=== PATIENT | male | born 1995 | race African-American/Black ===

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

== ENCOUNTER 2017-03-22 21:43 | Emergency (ER) | payer SELFPAY ==
[2017-03-22 21:45] VITALS: BP 127/69; PULSE 78; RESP 16; TEMP 98.2; O2SAT 100
--- NOTE | 2017-03-22 22:37 | PD ---
HPI Chief Complaint: Injury Time Seen by Provider: 22:35 Travel History International Travel<30 days: No Contact w/Intl Traveler<30days: No Traveled to known affect area: No History of Present Illness HPI Patient is a 21-year-old male presenting to emergency department for evaluation of right elbow pain. Patient states it's been ongoing for at least 2 months. The pain starts after he throws a football after practice. He is currently pain -free. There was no injury or trauma. [facility] Past Medical History Medical History: Denies Significant Hx Immunizations Current: Yes Social History Alcohol Use: No Tobacco Use: No Substance Use: No Allergies-Medications (Allergen,Severity, Reaction): Coded Allergies: No Known Allergies (Unverified , 03/22/17) Reported Meds & Prescriptions Reported Meds & Active Scripts Active No Active Prescriptions or Reported Medications Review of Systems Except as stated in HPI: all other systems reviewed are Neg Physical Exam Narrative GENERAL: Well-developed, well-nourished, alert male. Resting comfortably in no acute distress. SKIN: Warm and dry. HEAD: Normocephalic. EYES: No scleral icterus. No injection or drainage. NECK: Supple, trachea midline. No JVD or lymphadenopathy. CARDIOVASCULAR: Regular rate and rhythm without murmurs, gallops, or rubs. RESPIRATORY: Breath sounds equal bilaterally. No accessory muscle use. GASTROINTESTINAL: Abdomen soft, non-tender, nondistended. MUSCULOSKELETAL: No cyanosis, or edema. He is deformities, full range of motion in right elbow and wrist. 5 out of 5 spice miller strength. 2+ radial pulse. BACK: Nontender without obvious deformity. No CVA tenderness. Data Data Last Documented VS Vital Signs Date Time Temp Pulse Resp B/P (MAP) Pulse Ox O2 Delivery O2 Flow Rate FiO2 03/22/17 21:45 98.2 78 16 127/69 (88) 100 Room Air MDM Medical Decision Making Medical Screen Exam Complete: Yes Emergency Medical Condition: No Interpretation(s) Vital Signs Date Time Temp Pulse Resp B/P (MAP) Pulse Ox O2 Delivery O2 Flow Rate FiO2 03/22/17 21:45 98.2 78 16 127/69 (88) 100 Room Air Differential Diagnosis Tendinitis versus bursitis versus sprain versus strain versus other Narrative Course Patient is a 21-year-old male with right elbow pain, no injury or trauma. Pain starts after he's been throwing a football practice. Patient is currently pain- free but wanted to get it checked out. Patient was advised to alternate heat and ice to affected area, take [id number] ibuprofen or acetaminophen as needed and as directed for pain. He was advised to follow-up with his orthopedic surgeon or his primary doctor for further evaluation and management. A medical screening exam was performed: At the time of evaluation the presenting medical condition was determined not to be of an emergent nature. The patient was given the option of receiving additional care, but declined. Patient was given options for additional community resources from which to obtain care. The Patient Has Been advised to seek medical attention for their presenting complaint. The patient has been advised to return to the ER at any time if an emergent condition develops. Diagnosis Primary Impression: Encounter for medical screening examination Scripts No Active Prescriptions or Reported Meds Condition: Selena Barry Mar 22, 2017 22:37
== END 2017-03-22 22:43 | disposition left against medical advice (07) ==
LOC: NEPK 21:43
DX: M25.521 Pain in right elbow (principal)
CPT/HCPCS: 99281